=== PATIENT | female | born 1960 | race African-American/Black ===

== ENCOUNTER 2017-03-05 03:35 | Emergency (ER) | payer BC ==
[2017-03-05] MEDS ORDERED: Ibuprofen 200 MG TAB ONE (04:07)
--- NOTE | 2017-03-05 07:49 | RAD ---
FOUR VIEWS RIGHT KNEE: COMPARISON: None. HISTORY: Trip and fall with right knee pain. FINDINGS: Four views right knee show no evidence of acute fracture or dislocation. No significant degenerative changes are seen. No knee effusion is seen. There are well circumscribed radiopaque foreign bodies along the lateral aspect of the knee near the patella. These may represent phleboliths. IMPRESSION: No evidence of acute osseous abnormality. POS: [facility]
== END 2017-03-05 04:34 | disposition home or self-care (01) ==
LOC: ERS 03:35
DX: S80.01XA Contusion of right knee, initial encounter (principal); E11.9 Type 2 diabetes mellitus without complications; E78.5 Hyperlipidemia, unspecified; I10 Essential (primary) hypertension; W50.0XXA Accidental hit or strike by another person, initial encounter

== ENCOUNTER 2018-08-12 15:39 | Emergency (ER) | payer BC | END 2018-08-12 18:26 | disposition home or self-care (01) | LOC: ERS 15:39 | DX: N76.4 Abscess of vulva (principal); I10 Essential (primary) hypertension; E11.9 Type 2 diabetes mellitus without complications; E78.5 Hyperlipidemia, unspecified; Z79.4 Long term (current) use of insulin; Z79.899 Other long term (current) drug therapy | CPT/HCPCS: 56405 ==